=== PATIENT | female | born 2000 | race Hispanic/Latino ===

== ENCOUNTER 2022-09-03 13:34 | Emergency (ER) | payer OTHER ==
[~2022-09-03] VITALS: Ht 154.9 cm; Wt 55.8 kg
[2022-09-03] MEDS ORDERED: SODIUM CHLORIDE 0.9% 1000ML 1,000 ML IV ONE (14:45)
== END 2022-09-03 14:40 | disposition left against medical advice (07) ==
LOC: ER 13:40
DX: O00.90 Unspecified ectopic pregnancy without intrauterine pregnancy (principal)
CPT/HCPCS: 99282

== ENCOUNTER 2024-01-20 07:33 | Emergency (ER) | payer OTHER ==
[~2024-01-20] VITALS: Ht 154.9 cm; Wt 55.8 kg
[~2024-01-20 07:33] MED LIST: AMOX TR-K CLV1 EAC2 PO; ONDANSETRON ODT4 MG PO; ULTRAM 50MG50 MG PO
[2024-01-20 07:47] VITALS: PULSE 86; RESP 17; TEMP 98.4; O2SAT 100
[2024-01-20 08:35] LABS: BILIRUBIN,URINE NEGATIVE (NEGATIVE); CLARITY,URINE CLEAR (CLEAR); COLOR,URINE YELLOW (YELLOW); GLUCOSE, URINE NEGATIVE (NEGATIVE); KETONES,URINE NEGATIVE (NEGATIVE); LEUKOCYTE ESTERASE ,URINE NEGATIVE (NEGATIVE); NITRITE,URINE NEGATIVE (NEGATIVE); PH,URINE 6.5 (5 - 7); PROTEIN,URINE DIPSTICK NEGATIVE (NEGATIVE); URINE UROBILINOGEN 0.2 mg/dL (0.2 - 1)
[2024-01-20 08:36] LABS: PREGNANCY TEST, URINE NEGATIVE (NEGATIVE)
[2024-01-20] MEDS ORDERED: METRONIDAZOLE500 MG PO (08:52)
[2024-01-20 09:03] LABS: EPITHELIAL CELLS,URINE MODERATE /LPF
[2024-01-20 09:04] LABS: AMORPHOUS SEDIMENT,URINE RARE (FEW); BACTERIA,URINE FEW /HPF; RBC,URINE 0-5 /HPF (0-5)
== END 2024-01-20 09:13 | disposition home or self-care (01) ==
LOC: ER 07:45
DX: R10.32 Left lower quadrant pain (principal); N89.8 Other specified noninflammatory disorders of vagina
CPT/HCPCS: 81001; 81025; 99284